=== PATIENT | female | born 1995 | race Caucasian/White ===

== ENCOUNTER 2019-01-31 20:29 | Emergency (ER) | payer MEDICAID, OTHER ==
[~2019-01-31] VITALS: Ht 160 cm; Wt 54.5 kg
[2019-01-31] MEDS ORDERED: ondansetron/PF 4mg/2ml inj IV ONE ×2 (20:40→21:05)
[2019-01-31] MEDS ORDERED: normal saline 1000ML IV soln IVB ONE (20:40)
[2019-01-31] MEDS ORDERED: famotidine/PF 10 mg/ml inj IV ONE (20:40)
[2019-01-31] MEDS ORDERED: pantoprazole 40 MG vial IV ONE (20:40)
[2019-01-31 20:53] LABS: BASOPHILS % (AUTO) 0.2 % (0-1); EOSINOPHILS # (AUTO) 0.1 X10'3 (0-0.9); HEMATOCRIT 43.7 % (35.0-45.0); LYMPHOCYTES # (AUTO) 1.8 X10'3 (1.1-4.8); LYMPHOCYTES % (AUTO) 13.4 % (21-51); MEAN CORPUSCULAR HEMOGLOBIN 30.4 PG (27.0-31.0); MEAN CORPUSCULAR HGB CONC 34.4 g/dL (33.0-36.5); MEAN CORPUSCULAR VOLUME 88.3 FL (78-98); MEAN PLATELET VOLUME 6.8 FL (7.4-10.4); MONOCYTES # (AUTO) 0.6 X10'3 (0-0.9); MONOCYTES % (AUTO) 4.5 % (2-12); NEUTROPHILS # (AUTO) 11.1 X10'3 (1.8-7.7); NEUTROPHILS % (AUTO) 80.9 % (42-75); PLATELET COUNT 234 X10'3 (140-440); RED BLOOD COUNT 4.94 X10'6 (4.20-5.60); RED CELL DISTRIBUTION WIDTH 13.2 % (11.5-14.5); WHITE BLOOD COUNT 13.7 X10'3 (4.5-11.0)
--- NOTE | 2019-01-31 20:55 | NUR ---
PT STATES HAD 2 CUPS OF COFFEE AND 1.5 BOTTLES OF WATER TODAY, AND HAS VOIDED. BOLUSING FLUID FOR BP 81/33.
--- NOTE | 2019-01-31 21:00 | NUR ---
PT AGAIN ACTIVELY VOMITING, YELLOW FROTHY.
[2019-01-31] MEDS ORDERED: haloperidol lactate 5mg/ml inj IM ONE (21:05)
--- NOTE | 2019-01-31 21:05 | NUR ---
Hoa lomeli in [facility] - 01/31/19 at 2105 by SHILPA BP IMPROVED A
--- NOTE | 2019-01-31 21:05 | NUR ---
BP IMPROVED AFTER FIRST LITER OF NS, 2ND LITER INFUSING NOW. PT IS MISERABLE WITH NAUSEA AND THE CHILLS.
[2019-01-31 21:08] LABS: ALANINE AMINOTRANSFERASE 15 U/L (12-78); ALBUMIN 4.3 G/DL (3.4-5.0); ALBUMIN/GLOBULIN RATIO 1.3 (1.1-1.5); ALKALINE PHOSPHATASE 77 IU/L (46-116); ANION GAP 11 (8-16); ASPARTATE AMINO TRANSFERASE 12 U/L (10-37); BILIRUBIN,TOTAL 0.5 MG/DL (0.1-1.0); BLOOD UREA NITROGEN 9 MG/DL (7-18); BUN/CREATININE RATIO 12.5 (6.6-38.0); CALCIUM 9.1 MG/DL (8.5-10.1); CHLORIDE 102 MMOL/L (99-107); CREATININE 0.72 MG/DL (0.40-0.90); GLUCOSE 104 MG/DL (70-104); POTASSIUM 3.8 MMOL/L (3.5-5.1); SODIUM 139 MMOL/L (135-145); TOTAL CARBON DIOXIDE 25.9 MMOL/L (24-32); TOTAL PROTEIN 7.6 G/DL (6.4-8.2); eGFR > 90 ML/MIN
[2019-01-31 21:58] LABS: CLARITY,URINE CLEAR (Clear); COLOR,URINE STRAW (Yellow); GLUCOSE, URINE NEGATIVE (Neg); KETONES,URINE NEGATIVE (Neg); LEUKOCYTE ESTERASE ,URINE NEGATIVE (Neg); NITRITES, URINE NEGATIVE (Neg); OCCULT BLOOD,URINE NEGATIVE (Neg); PROTEIN,URINE NEGATIVE (Neg); URINE HCG NEGATIVE (NEG); UROBILINOGEN,URINE 0.2 E.U/dL (0.2-1.0)
[2019-01-31 22:10] LABS: URINE AMPHETAMINE SCREEN NEGATIVE (Neg); URINE BARBITUATE SCREEN NEGATIVE (Neg); URINE BENZODIAZEPINES SCREEN NEGATIVE (Neg); URINE CANNABINOID SCREEN POSITIVE (Neg); URINE COCAINE SCREEN NEGATIVE (Neg); URINE METHADONE SCREEN NEGATIVE (Neg); URINE OPIATE SCREEN NEGATIVE (Neg); URINE PHENCYCLIDINE SCREEN NEGATIVE (Neg)
[2019-01-31 22:11] LABS: UA COLLECTION TYPE OTHER
[2019-01-31] MEDS ORDERED: ONDA4TAB6 PO (22:59)
[2019-01-31 23:15] VITALS: BP 112/66
== END 2019-01-31 23:18 | disposition home or self-care (01) ==
LOC: ER 20:30
DX: F12.19 Cannabis abuse with unspecified cannabis-induced disorder (principal); R11.2 Nausea with vomiting, unspecified; R10.13 Epigastric pain; J45.909 Unspecified asthma, uncomplicated; F15.90 Other stimulant use, unspecified, uncomplicated; F11.90 Opioid use, unspecified, uncomplicated; F10.99 Alcohol use, unspecified with unspecified alcohol-induced disorder; Z79.899 Other long term (current) drug therapy; Y90.9 Presence of alcohol in blood, level not specified
CPT/HCPCS: 36415; 80053; 80305; 81003; 81025; 84702; 85025; 96361; 96372; 96374; 96375; 99283; C9113; J1630; J2405; J3490; J7030

== ENCOUNTER 2019-09-13 22:44 | Emergency (ER) | payer MEDICAID ==
[~2019-09-13] VITALS: Ht 167.6 cm; Wt 61.4 kg
[~2019-09-13 22:44] MED LIST: ONDA4TAB6 PO
[2019-09-13] MEDS ORDERED: LORazepam 1 MG tablet PO ONE (22:55)
--- NOTE | 2019-09-13 23:10 | NUR ---
RPD at bedside
[2019-09-13 23:31] VITALS: BP 116/79
== END 2019-09-13 23:36 | disposition home or self-care (01) ==
LOC: ER 22:45
DX: F41.9 Anxiety disorder, unspecified (principal); F10.129 Alcohol abuse with intoxication, unspecified; J45.909 Unspecified asthma, uncomplicated; F12.90 Cannabis use, unspecified, uncomplicated; F15.90 Other stimulant use, unspecified, uncomplicated; F11.90 Opioid use, unspecified, uncomplicated; F17.200 Nicotine dependence, unspecified, uncomplicated; Z79.899 Other long term (current) drug therapy; Y90.9 Presence of alcohol in blood, level not specified
CPT/HCPCS: 99283

== ENCOUNTER 2019-12-12 21:26 | Emergency (ER) | payer MEDICAID ==
[~2019-12-12] VITALS: Ht 160 cm; Wt 58.1 kg
[2019-12-12] MEDS ORDERED: haloperidol lactate 5mg/ml inj IM ONE (21:50)
[2019-12-12] MEDS ORDERED: normal saline 1000ML IV soln IV ONE (21:50)
[2019-12-12] MEDS ORDERED: LORazepam 2 mg/ml vial IV ONE (21:50)
[2019-12-12 22:02] LABS: BASOPHILS % (AUTO) 0.3 % (0-1); EOSINOPHILS % (AUTO) 0.2 % (0-6); HEMATOCRIT 49.6 % (35.0-45.0); HEMOGLOBIN 17.2 g/dl (12.0-16.0); LYMPHOCYTES # (AUTO) 1.7 X10'3 (1.1-4.8); LYMPHOCYTES % (AUTO) 16.1 % (21-51); MEAN CORPUSCULAR HEMOGLOBIN 30.1 PG (27.0-31.0); MEAN CORPUSCULAR HGB CONC 34.6 g/dL (33.0-36.5); MEAN CORPUSCULAR VOLUME 87.1 FL (78-98); MEAN PLATELET VOLUME 6.5 FL (7.4-10.4); MONOCYTES % (AUTO) 9.8 % (2-12); NEUTROPHILS # (AUTO) 7.6 X10'3 (1.8-7.7); NEUTROPHILS % (AUTO) 73.6 % (42-75); PLATELET COUNT 322 X10'3 (140-440); RED CELL DISTRIBUTION WIDTH 13.7 % (11.5-14.5); WHITE BLOOD COUNT 10.4 X10'3 (4.5-11.0)
[2019-12-12 22:06] LABS: URINE HCG NEGATIVE (NEG)
[2019-12-12 22:17] LABS: CLARITY,URINE CLOUDY (Clear); COLOR,URINE YELLOW (Yellow); GLUCOSE, URINE NEGATIVE (Neg); KETONES,URINE 40 mg/dl (Neg); LEUKOCYTE ESTERASE ,URINE NEGATIVE (Neg); NITRITES, URINE POSITIVE (Neg); OCCULT BLOOD,URINE SMALL (Neg); PROTEIN,URINE TRACE mg/dl (Neg)
[2019-12-12 22:18] LABS: UA COLLECTION TYPE CLN CATCH MIDSTREAM
[2019-12-12 22:19] LABS: BACTERIA,URINE 4+ /HPF (Neg); RBC,URINE 0-2 /HPF (0-2); SQUAMOUS EPITHELIAL CELL,UR MODERATE /LPF (FEW); WBC,URINE 0-4 /HPF (0-4)
[2019-12-12 22:20] LABS: ALBUMIN 4.4 G/DL (3.4-5.0); ALBUMIN/GLOBULIN RATIO 1.1 (1.1-1.5); ALKALINE PHOSPHATASE 102 IU/L (46-116); ANION GAP 10 (8-16); ASPARTATE AMINO TRANSFERASE 16 U/L (10-37); BILIRUBIN,TOTAL 1.3 MG/DL (0.1-1.0); BLOOD UREA NITROGEN 14 MG/DL (7-18); BUN/CREATININE RATIO 15.9 (6.6-38.0); CALCIUM 9.5 MG/DL (8.5-10.1); CHLORIDE 98 MMOL/L (99-107); CREATININE 0.88 MG/DL (0.40-0.90); GLUCOSE 109 MG/DL (70-104); LIPASE 70 U/L (73-393); SODIUM 138 MMOL/L (135-145); TOTAL CARBON DIOXIDE 30.5 MMOL/L (24-32); TOTAL PROTEIN 8.5 G/DL (6.4-8.2); eGFR 80 ML/MIN
[2019-12-12 22:24] LABS: POTASSIUM 2.8 MMOL/L (3.5-5.1)
[2019-12-12] MEDS ORDERED: potassium Cl 20 mEq SR tablet PO STA (22:26)
[2019-12-12] MEDS ORDERED: potassium Cl 10 mEq/100mL bag IV ONE (22:30)
[2019-12-12 22:42] LABS: ALANINE AMINOTRANSFERASE < 6 U/L (12-78)
[2019-12-12 23:53] VITALS: BP 95/57
== END 2019-12-12 23:55 | disposition home or self-care (01) ==
LOC: ER 21:26
DX: R11.15 Cyclical vomiting syndrome unrelated to migraine (principal); R11.10 Vomiting, unspecified; R10.9 Unspecified abdominal pain; J45.909 Unspecified asthma, uncomplicated; F41.9 Anxiety disorder, unspecified; F12.90 Cannabis use, unspecified, uncomplicated; F15.90 Other stimulant use, unspecified, uncomplicated; F11.90 Opioid use, unspecified, uncomplicated; Z72.89 Other problems related to lifestyle; Z79.899 Other long term (current) drug therapy
CPT/HCPCS: 36415; 80053; 81001; 81025; 83690; 85025; 87088; 96361; 96365; 96372; 96375; 99284; J1630; J2060; J3480; J7030; 96374

== ENCOUNTER 2020-02-20 13:13 | Emergency (ER) | payer MEDICAID ==
[~2020-02-20] VITALS: Ht 160 cm; Wt 60.9 kg
[2020-02-20 13:32] VITALS: BP 118/66
== END 2020-02-20 14:45 | disposition home or self-care (01) ==
LOC: ER 13:13
DX: M79.644 Pain in right finger(s) (principal); F12.90 Cannabis use, unspecified, uncomplicated; F15.90 Other stimulant use, unspecified, uncomplicated; F11.90 Opioid use, unspecified, uncomplicated; J45.909 Unspecified asthma, uncomplicated; F41.9 Anxiety disorder, unspecified; Z72.89 Other problems related to lifestyle; Z79.899 Other long term (current) drug therapy; W22.8XXA Striking against or struck by other objects, initial encounter; Y93.G3 Activity, cooking and baking; Y92.89 Other specified places as the place of occurrence of the external cause; Y99.8 Other external cause status
CPT/HCPCS: 73140; 99283